=== PATIENT | male | born 1950 | race Caucasian/White ===

== ENCOUNTER 2021-10-30 10:10 | Emergency (ER) | payer MEDICARE, OTHER ==
[2021-10-30 10:23] VITALS: PULSE 78; TEMP 97.8
[2021-10-30] MEDS ORDERED: KETOROLAC 15 MG/ML 1 ML VIAL IM STA (10:30)
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
--- NOTE | 2021-10-30 11:09 | XR ---
EXAMINATION TYPE: XR foot complete LT DATE OF EXAM: 10/30/2021 CLINICAL HISTORY: Pain an bruising after recent injury TECHNIQUE: Frontal, lateral, and oblique images of the left foot are obtained. COMPARISON: None FINDINGS: There is no acute fracture/dislocation evident in the left foot. Hallux valgus positioning first metatarsal phalangeal joint with mild to moderate narrowing. Some flexion of the toes is prese nt. Overlying soft tissue is unremarkable. IMPRESSION: As above.
[2021-10-30 11:59] VITALS: BP 145/84; RESP 18
== END 2021-10-30 11:59 | disposition home or self-care (01) ==
LOC: EC 10:10
DX: S97.112A Crushing injury of left great toe, initial encounter (principal); F17.200 Nicotine dependence, unspecified, uncomplicated; V03.10XA Pedestrian on foot injured in collision with car, pick-up truck or van in traffic accident, initial encounter
CPT/HCPCS: 73630; 99283; 96372; J1885

== ENCOUNTER 2022-11-12 23:25 | Observation (INO) | payer MEDICARE, OTHER ==
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
[2022-11-13 02:48] LABS: Basophils % (A) 0 %; Eosinophils # (A) 0.1 k/uL (0-0.7); Eosinophils % (A) 2 %; HCT 41.9 % (39.0-53.0); HGB 14.4 gm/dL (13.0-17.5); Lymphocytes # (A) 1.5 k/uL (1.0-4.8); Lymphocytes % (A) 27 %; MCH 35.2 pg (25.0-35.0); MCHC 34.4 g/dL (31.0-37.0); MCV 102.3 fL (80.0-100.0); Macrocytosis Slight; Mean Platelet Volume 7.6; Monocytes # (A) 0.4 k/uL (0-1.0); Monocytes % (A) 8 %; Neutrophils # (A) 3.4 k/uL (1.3-7.7); Neutrophils % (A) 61 %; Platelet Count 148 k/uL (150-450); RBC 4.09 m/uL (4.30-5.90); RDW 12.5 % (11.5-15.5); WBC 5.6 k/uL (3.8-10.6)
[2022-11-13 03:11] LABS: African American GFR (CKD) >90 (>60 ml/min/1.73 sqM); Anion Gap 6 mmol/L; Blood Urea Nitrogen 14 mg/dL (9-20); Calcium 8.1 mg/dL (8.4-10.2); Carbon Dioxide 24 mmol/L (22-30); Chloride 93 mmol/L (98-107); Glucose 88 mg/dL (74-99); Non-African American GFR(CKD) >90 (>60 ml/min/1.73 sqM); Sodium 123 mmol/L (137-145)
[2022-11-13 03:35] LABS: Alcohol 265 mg/dL
[2022-11-13 03:37] LABS: Potassium 6.4 mmol/L (3.5-5.1)
[2022-11-13] MEDS ORDERED: SODIUM CHLORIDE 0.9% 1,000 ML IV STA (03:47)
[2022-11-13] MEDS ORDERED: SODIUM ZIRCONIUM CYCLOSILICATE 10 GM PACKET PO ONE (03:47)
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
[2022-11-13] MEDS ORDERED: NALOXONE 0.4 MG/ML 1 ML VIAL IV PRN (06:52)
[2022-11-13] MEDS: SODIUM CHLORIDE 0.9% 1,000 ML IV SCH ×2 (08:32→21:39)
[2022-11-13 11:26] LABS: ALT 25 U/L (4-49); AST 52 U/L (17-59); African American GFR (CKD) >90 (>60 ml/min/1.73 sqM); Albumin 3.7 g/dL (3.5-5.0); Albumin/Globulin Ratio 1.5; Alkaline Phosphatase 45 U/L (38-126); Anion Gap 8 mmol/L; Blood Urea Nitrogen 10 mg/dL (9-20); Calcium 8.4 mg/dL (8.4-10.2); Carbon Dioxide 25 mmol/L (22-30); Chloride 96 mmol/L (98-107); Globulin 2.5 g/dL; Glucose 121 mg/dL (74-99); Non-African American GFR(CKD) >90 (>60 ml/min/1.73 sqM); Potassium 3.6 mmol/L (3.5-5.1); Sodium 129 mmol/L (137-145); Total Bilirubin 0.5 mg/dL (0.2-1.3); Total Protein 6.2 g/dL (6.3-8.2)
[2022-11-13] MEDS ORDERED: LORazepam 1 MG TAB PO PRN ×3 (13:57)
[2022-11-13] MEDS ORDERED: LORazepam 0.5 MG TAB PO PRN (13:57)
[2022-11-13] MEDS: MULTIVITAMINS, THERA 1 EACH TAB PO SCH (16:02)
[2022-11-13] MEDS: THIAMINE 100 MG TAB PO SCH (16:02)
[2022-11-13] MEDS: ACETAMINOPHEN TAB 325 MG TAB PO PRN (16:28)
[2022-11-13] MEDS: FAMOTIDINE 20 MG TAB PO SCH (21:37)
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
[2022-11-14 06:06] LABS: Basophils % (A) 0 %; Eosinophils # (A) 0.1 k/uL (0-0.7); Eosinophils % (A) 2 %; HCT 41.1 % (39.0-53.0); HGB 13.8 gm/dL (13.0-17.5); Lymphocytes # (A) 1.3 k/uL (1.0-4.8); Lymphocytes % (A) 23 %; MCH 34.9 pg (25.0-35.0); MCHC 33.7 g/dL (31.0-37.0); MCV 103.6 fL (80.0-100.0); Macrocytosis Slight; Mean Platelet Volume 7.7; Monocytes # (A) 0.4 k/uL (0-1.0); Monocytes % (A) 8 %; Neutrophils # (A) 3.6 k/uL (1.3-7.7); Neutrophils % (A) 65 %; Platelet Count 133 k/uL (150-450); RBC 3.97 m/uL (4.30-5.90); RDW 12.7 % (11.5-15.5); WBC 5.5 k/uL (3.8-10.6)
[2022-11-14 06:08] LABS: African American GFR (CKD) >90 (>60 ml/min/1.73 sqM); Anion Gap 3 mmol/L; Blood Urea Nitrogen 12 mg/dL (9-20); Calcium 8.2 mg/dL (8.4-10.2); Carbon Dioxide 28 mmol/L (22-30); Chloride 98 mmol/L (98-107); Glucose 87 mg/dL (74-99); Non-African American GFR(CKD) >90 (>60 ml/min/1.73 sqM); Potassium 4.2 mmol/L (3.5-5.1); Sodium 129 mmol/L (137-145)
[2022-11-14] MEDS: ACETAMINOPHEN TAB 325 MG TAB PO PRN (08:07)
[2022-11-14] MEDS: THIAMINE 100 MG TAB PO SCH (08:08)
[2022-11-14] MEDS: FAMOTIDINE 20 MG TAB PO SCH (08:08)
[2022-11-14] MEDS: SODIUM CHLORIDE 0.9% 1,000 ML IV SCH (08:08)
[2022-11-14] MEDS: MULTIVITAMINS, THERA 1 EACH TAB PO SCH (08:08)
--- NOTE | 2022-11-14 08:13 | XR ---
EXAMINATION TYPE: XR ribs bilateral DATE OF EXAM: 11/14/2022 7:52 AM INDICATION: Patient age:Male; 72 years old; Reason for study: left sided pain; COMPARISON: None TECHNIQUE: Frontal and oblique views of the bilateral ribs with frontal chest radiograph. FINDINGS: No evidence of fracture. Overall, the lungs are clear. The cardiac silhouette is normal in size. The remaining osseous structures are intact. Left mid clavicle irregularity correlate for fracture. IMPRESSION: 1. No displaced rib fracture visualized. If there remains clinical concern and necessity consider CT . 2. Left mid clavicle cortical irregularity correlate for fracture with point tenderness.
[2022-11-14] MEDS ORDERED: HEPARIN SODIUM,PORCINE/PF 5,000 UNIT/0.5 ML SYRINGE SQ SCH (09:00)
--- NOTE | 2022-11-14 14:39 | XR ---
EXAMINATION TYPE: XR clavicle LT DATE OF EXAM: 11/14/2022 2:02 PM INDICATION: Patient age:Male; 72 years old; Reason for study: fracture; COMPARISON: Radiograph same day TECHNIQUE: AP and cephalic tilt views were obtained of the left clavicle. FINDINGS: Left mid clavicle fracture. Moderate left shoulder osteoarthrosis with osteophytes and joint space na rrowing. IMPRESSION: Deformity to the left mid clavicle compatible with fracture. Correlate with point tenderness for acut e fracture.
[2022-11-14 14:52] VITALS: BP 143/72; PULSE 58; RESP 15; TEMP 98.3
--- NOTE | 2022-11-24 01:32 | P.DS ---
Providers Date of admission: 11/13/22 06:52 Expected date of discharge: 11/14/22 Attending physician: Teresa Singleton Consults: 11/14/22 15:21 Consult Physician Routine Consulting Provider: Vincenzo Small Consult Reason/Comments: Left clavicle fx Do you want consulting provider notified?: Yes Primary care physician: Stated None Hospital Course: Discharge diagnosis Acute alcohol intoxication with serum alcohol level 265. Status post multiple falls likely due to intoxication. Left-sided rib cage pain. Ruled out fracture. Left medial clavicle fracture. left nasal bone deformity correlate for acute fracture. Hypovolemic hyponatremia Hyperkalemia which is a hemolyzed sample. Macrocytosis and thrombocytopenia likely due to alcohol abuse DVT prophylaxis with heparin subcu and GI prophylaxis with Pepcid Hospital course Patient is a 72-year-old male with a known history of daily alcohol use and currently everyday smoking was brought to the hospital by EMS as he was found sitting on the street by bystander. Patient was intoxicated on admission. Patient states that he fell multiple times on his left side. Denies any hitting his head. Patient states that he has been having pain when lying on the left. No complaints of shortness of breath. Denies any recent illnesses. No nausea vomiting or diarrhea. CT head on admission showed no acute intracranial process. Remote right [place] radiator injury. Nonspecific white matter changes. Likely secondary to chronic small vessel ischemic disease. Left nasal bone deformity correlate for acute fracture or tenderness. Laboratory data showed WBC 5.6 hemoglobin 14.4 and platelets 148, sodium 123 potassium 6.4 which is hemolyzed chloride 93 bicarb is 24 BUN 41 creatinine 0.57 and calcium 8.1 and serum alcohol level is 265. Patient required on IV hydration with normal saline. Monitor serum sodium level. Repeat potassium is within normal limits. X-ray of the rib to r/o fracture. Continued with pain management. Encourage incentive spirometry Alcohol withdrawal protocol X-ray of the ribs showed no displaced rib fractures identified. Left medial clavicle cortical irregularity correlate for fracture with point tenderness. Clavicle x-ray showed deformity to the left mid clavicle compatible with a fracture. Correlate with point tenderness for acute fractures. Orthopedic surgery was consulted for patient does not want to stay in the hospital and would like to be discharged home now. Patient was advised to follow-up as an outpatient. Patient states that he already had a fracture before. Otherwise p atient is hemodynamically stable. More awake and oriented today. Laboratory data showed WBC 5.4 hemoglobin 13.8 and platelets 133, sodium level is stable at 129 potassium 4.2 chloride 98, BUN 12 and creatinine 0.68 and calcium 8.2. Patient is being discharged home today. Alcohol cessation has been counseled extensively. PHYSICAL EXAMINATION: Patient is lying in the bed comfortably, no acute distress, awake alert and oriented.. HEENT: Normocephalic. Neck is supple. Pupils reactive. Nostrils clear. Oral cavity is moist. Neck reveals no JVD, carotid bruits, or thyromegaly. CHEST EXAMINATION: Trachea is central. Symmetrical expansion. Lung gallegos clear to auscultation and percussion. CARDIAC: Normal S1, S2 with no gallops. No murmurs ABDOMEN: Soft. Bowel sounds present. Nontender. No organomegaly. No abdominal bruits. Extremities: reveal no edema. No clubbing or cyanosis Neurologically awake, alert, oriented x3 with well-coordinated movements. No focal deficits noted Skin: No rash or skin lesions. Psychiatric: Coperative. Nonsuicidal, Musculoskeletal: No joint swelling or deformity. Tenderness over the left clavicle. Patient is able to raise his arm otherwise. Normal range of motion. Discharge vitals reviewed. Patient Condition at Discharge: Fair Plan - Discharge Summary New Discharge Prescriptions: No Action No Known Home Medications Discharge Medication List No Known Home Medications 11/13/22 [History] Follow up Appointment(s)/Referral(s): None,Stated [Primary Care Provider] - 1-2 days Patient Instructions/Handouts: Alcohol Withdrawal (DC) Discharge Disposition: HOME SELF-CARE
== END 2022-11-14 17:08 | disposition home or self-care (01) ==
LOC: EC 23:25 → 6NMEDSUR 11-13 06:52
PROVIDERS: ADMIT Hospitalist; ATTEND Hospitalist
DX: F10.129 Alcohol abuse with intoxication, unspecified (principal); Y90.8 Blood alcohol level of 240 mg/100 ml or more; R29.6 Repeated falls; R07.81 Pleurodynia; M95.0 Acquired deformity of nose; E87.1 Hypo-osmolality and hyponatremia; E86.1 Hypovolemia; E87.5 Hyperkalemia; D75.89 Other specified diseases of blood and blood-forming organs; D69.6 Thrombocytopenia, unspecified; F17.200 Nicotine dependence, unspecified, uncomplicated
CPT/HCPCS: 96361; 96360; 99285; 36415; 93005; 80053; 80048 ×2; 84132; 85025 ×2; 80320; 71110; 73000; 70450; G0378 ×2; J1644